=== PATIENT | male | born 1990 | race Caucasian/White ===

== ENCOUNTER 2018-03-21 16:03 | Emergency (ER) | payer SELFPAY ==
[~2018-03-21] VITALS: Ht 177.8 cm; Wt 87.0 kg
[2018-03-21] MEDS ORDERED: LORAZEPAM 1MG TABLET PO ONE (18:00)
[2018-03-21 18:17] LABS: BASOPHILS % 1.3 % (0.0-2.0); EOSINOPHILS % 0.9 % (0.0-5.0); HEMOGLOBIN. 13.9 g/dL (14.0-18.0); LYMPHOCYTES % 9.4 % (20.0-50.0); MEAN CORPUSCULAR HEMOGLOBIN 33.2 pg (28.0-32.0); MEAN CORPUSCULAR VOLUME 95.3 fL (80.0-94.0); MEAN PLATELET VOLUME 7.2 fl (7.4-10.4); MONOCYTES % 10.8 % (2.0-8.0); NEUTROPHILS % 77.6 % (40.0-76.0); PLATELET 233 x1000/uL (130-400); RED BLOOD CELL COUNT 4.19 mill/uL (4.7-6.1); RED CELL DISTRIBUTION WIDTH 13.7 % (11.6-14.6)
[2018-03-21 18:19] LABS: CHLORIDE 103 mEq/L (98-107)
[2018-03-21 18:22] LABS: ETHANOL BLOOD < 10 mg/dL
[2018-03-21 21:45] VITALS: BP 139/94
== END 2018-03-21 21:45 | disposition home or self-care (01) ==
LOC: ER 16:04
DX: R56.9 Unspecified convulsions (principal)
CPT/HCPCS: 36415; 80048; 85025; 99284; G0482